=== PATIENT | female | born 1965 | race Caucasian/White ===

== ENCOUNTER 2022-05-10 18:59 | Emergency (ER) | payer MEDICAID ==
[~2022-05-10] VITALS: Ht 154.9 cm; Wt 91.6 kg
[2022-05-10 19:08] VITALS: BP 155/73
[2022-05-10 20:13] LABS: BASOPHILS % (AUTO) 0.7 % (0.0-2.0); EOSINOPHILS # (AUTO) 0.1 K/uL (0-0.4); EOSINOPHILS % (AUTO) 1.4 % (0.0-4.0); HEMATOCRIT 40.4 % (36-48); HEMOGLOBIN 12.8 g/dL (12.0-16.0); LYMPHOCYTES # (AUTO) 1.8 K/uL (2.5-16.5); LYMPHOCYTES % (AUTO) 24.3 % (20.5-51.1); MEAN CORPUSCULAR HEMOGLOBIN 26 pg (27-31); MEAN CORPUSCULAR HGB CONC 32 g/dL (33-37); MEAN CORPUSCULAR VOLUME 81.9 fL (80-94); MONOCYTES # (AUTO) 0.5 K/uL (0.8-1.0); MONOCYTES % (AUTO) 6.9 % (1.7-9.3); NEUTROPHILS % (AUTO) 66.7 % (42.2-75.2); PLATELET COUNT (AUTO) 263 K/uL (140-450); RED BLOOD CELL COUNT(AUTO) 4.94 MIL/uL (4.20-5.40); RED CELL DISTRIBUTION WIDTH 16.1 % (11.6-13.7); WHITE BLOOD COUNT (AUTO) 7.4 K/uL (4.8-10.8)
[2022-05-10 20:41] LABS: ANION GAP 6.3 (8-16); CARBON DIOXIDE 27.7 mmol/L (21-32)
--- NOTE | 2022-05-10 22:38 | NUR ---
57 Y/O F presents with intermittent chest pain radiating to bilateral sides and back with 0/10 pain at the moment. pt states she feels bloated with gas and this has been happening xtoday. pt complains of headaches. pt is A&Ox4, skin intact, denies being on blood thinners. PMH-diabetes, HTN NKA
--- NOTE | 2022-05-10 22:38 | NUR ---
Dr. Mcneil at bedside
--- NOTE | 2022-05-10 22:39 | NUR ---
pt to bed #8
[2022-05-10] MEDS ORDERED: DICYCLOMINE HCL LIQUID 20 MG, ALUMINUM HYD/MAG/SIMETHICONE 30 ML, LIDOCAINE VISCOUS 2% ... PO ONE ×3 (22:50)
[2022-05-10] MEDS ORDERED: ALUMINUM HYD/MAG/SIMETHICONE 30 ML UDC ONE ×2 (22:52→23:00)
[2022-05-10] MEDS ORDERED: DICYCLOMINE HCL LIQUID 10 MG/5 ML UDC ONE (22:52)
--- NOTE | 2022-05-10 23:00 | NUR ---
pt ambulatory to restroom
--- NOTE | 2022-05-10 23:05 | NUR ---
pt returned from restroom.
--- NOTE | 2022-05-11 | NUR ---
Dr. Mcneil at bedside
[2022-05-11] MEDS ORDERED: KETOROLAC 30 MG/ML VIAL IM ONE (00:40)
[2022-05-11] MEDS ORDERED: CYCLOBENZAPRINE 10 MG TAB PO ONE (00:40)
[2022-05-11] MEDS ORDERED: FAMO-90 PO (00:40)
[2022-05-11] MEDS ORDERED: ACET-10509 PO (00:40)
--- NOTE | 2022-05-11 01:26 | NUR ---
Patient discharged with v/s stable. Written and verbal after care instructions given and explained. Patient alert, oriented and verbalized understanding of instructions. Ambulatory with steady gait. All questions addressed prior to discharge. ID band removed. Patient advised to follow up with PMD. Rx of pepcid and tylenol extra strength given. Opportunity to ask questions provided and answered.
--- NOTE | 2022-05-11 01:57 | NUR ---
The patient's care was reviewed and supervised by Zara Azevedo RN.
== END 2022-05-11 01:26 | disposition home or self-care (01) ==
LOC: MED 18:59
DX: K29.70 Gastritis, unspecified, without bleeding (principal); R07.89 Other chest pain; E11.9 Type 2 diabetes mellitus without complications; I10 Essential (primary) hypertension; Z79.899 Other long term (current) drug therapy
CPT/HCPCS: 36415; 71045; 80048; 83690; 84484; 85025; 85379; 93005; 96372; 99285; J1885